=== PATIENT | female | born 1930 | race Caucasian/White ===

== ENCOUNTER 2016-08-03 17:50 | Emergency (ER) | payer MEDICARE ==
[2016-08-03] MEDS ORDERED: IOPAMIDOL 300 (61%) 100 ML VIAL IV ONE (17:51)
[2016-08-03] MEDS ORDERED: LACTATED RINGERS 1,000 ML ONE (18:41)
[2016-08-03 18:51] LABS: ABSOLUTE NEUTROPHIL COUNT 7.6 K/mm3 (1.8-7.7); BASO % 0.3 % (0.2-1.0); EOS % 0.2 % (0.9-2.9); HEMATOCRIT 36.2 % (37.0-47.0); HEMOGLOBIN 12.2 gm/l (12.0-16.0); IMM NEUT # 0.1 K/mm3 (0-0.2); IMM NEUT% 0.6 % (0-1); LYMPH # 2.4 (1.0-4.8); LYMPH % 22.1 % (15-45); MEAN CELL VOLUME 94.3 fl (81.0-99.0); MEAN CORPUSCULAR HEMOGLOBIN 31.8 pg (27.0-31.0); MEAN CORPUSCULAR HGB CONC 33.7 g/dl (33.0-37.0); MEAN PLATELET VOLUME 9.6 fl (7.4-10.4); MONO # 0.7 (0.0-0.8); MONO % 6.5 % (4-12); NEUT % 70.3 % (43-75); PLATELET COUNT 246 K/mm3 (130-400); RED CELL DISTRIBUTION WIDTH 14.2 % (11.5-14.5)
[2016-08-03 19:03] LABS: ALB/GLOB RATIO 1.6 (>1.0); ALBUMIN 3.8 gm/dL (3.5-5.7); CALCIUM 8.9 mg/dL (8.6-10.3)
[2016-08-03 20:35] LABS: URINE BILIRUBIN NEGATIVE (NEGATIVE); URINE BLOOD NEGATIVE (NEGATIVE); URINE GLUCOSE (UA) NEGATIVE (NEGATIVE); URINE LEUKOCYTE ESTERASE NEGATIVE (NEGATIVE); URINE NITRITE NEGATIVE (NEGATIVE); URINE PROTEIN NEGATIVE (NEGATIVE); URINE UROBILINOGEN NORMAL (0-1 mg/dl)
[2016-08-03 20:40] LABS: URINE APPEARANCE CLEAR; URINE COLOR YELLOW
--- NOTE | 2016-08-04 08:01 | CT ---
Exam Type: ABD/PELVIS W/ CON Date and Time: 08/03/2016 6:40 PM Clinical information: Right-sided lower abdominal pain. Comparison: None Procedure: Imaging device: [employer] Aquilion [address] scanner 1 mm axial images were obtained through the abdomen and pelvis. Stacked reconstructed 3, 4 and 5 mm images were photographed in the axial coronal and sagittal planes. No oral contrast was utilized for this examination. 100 ml of Isovue-300 was injected intravenously. Exam: with intravenous contrast. FINDINGS: Lung bases: There is a 6 mm nodular focus identified within the right pulmonary base on lung window image #3. No effusion or gross consolidation is visualized. Liver: Small low-attenuation foci within the central right hepatic lobe likely reflect hepatic cysts. Spleen: The spleen is homogeneous and does not appear to be enlarged. Gallbladder: Normal without enlargement or evidence of adjacent inflammatory changes. Pancreas: Normal without enlargement or evidence of adjacent inflammatory changes. Adrenal glands: Normal without enlargement or evidence of adjacent inflammatory changes. Abdominal aorta: Dense atherosclerotic vascular calcification is seen. No focal aneurysm is visualized. Kidneys: A small exophytic low-attenuation focus is seen involving the inferior left kidney, likely reflecting a small cyst. No evidence of hydronephrosis is seen. Bowel structures: Distal colonic diverticulosis is present. No associated inflammatory stranding is visualized however. There is no evidence of dilatation or obstruction. Appendix: The appendix is well-visualized and appears to be of normal caliber. No periappendiceal inflammatory changes or CT findings of appendicitis are currently observed. Bladder: The bladder is of normal contour. No wall thickening or significant distention is observed. Hernia: No abdominal wall or inguinal hernia is visualized on this examination. Adenopathy: No significant enlarged adenopathy is visualized. Osseous structures: Prominent multilevel lumbar degenerative changes are present with a lumbar scoliotic deformity. Pelvic structures: No discrete pelvic abnormalities are visualized in this examination. IMPRESSION: 1. Distal colonic diverticulosis without evidence to suggest diverticulitis. 2. A normal appearance of the appendix without CT evidence of appendicitis. 3. A noncalcified 6 mm pulmonary nodule within the right pulmonary base. Follow-up is recommended as per Fleischner criteria. 4. Central right hepatic cysts. 5. Prominent multilevel lumbar degenerative changes with a scoliotic deformity. The findings were called to the emergency room at 2004 hours, 08/03/2016, by [facility].
== END 2016-08-03 21:33 | disposition home or self-care (01) ==
LOC: ED 17:50
DX: R10.9 Unspecified abdominal pain (principal); G30.9 Alzheimer's disease, unspecified; F02.80 Dementia in other diseases classified elsewhere, unspecified severity, without behavioral disturbance, psychotic disturbance, mood disturbance, and anxiety
CPT/HCPCS: 83690; 85025; 80053; 81003; 74177; 99284 ×2; 96360; 96361; J7120; Q9967